=== PATIENT | male | born 1990 | race Two or more races ===

== ENCOUNTER 2024-07-30 01:25 | Emergency (ER) | payer MEDICAID, SELFPAY ==
[2024-07-30 01:27] VITALS: BMI 22.3
--- NOTE | 2024-07-30 01:35 | PC.NURSE ---
[facility] PT LEFT STORMING OUT YELLING AT STAFF. STATING EVERYONE HAS BEEN DISRESPECTFUL
== END 2024-07-30 01:37 | disposition left against medical advice (07) ==
LOC: SERX 01:52
PROVIDERS: Emergency Provider Emergency Medicine
DX: Z53.21 Procedure and treatment not carried out due to patient leaving prior to being seen by health care provider (principal)

== ENCOUNTER 2024-08-21 00:41 | Emergency (ER) | payer MEDICAID, SELFPAY ==
[2024-08-21 00:41] VITALS: BMI 21.8
[2024-08-21 01:13] VITALS: BP 112/63; PULSE 89; RESP 19; TEMP 36.8; O2SAT 99
--- NOTE | 2024-08-21 01:46 | EDNOTE_ITS ---
ED Weakness RME/HPI General Chief complaint: Dizziness Stated complaint: FEEL FAINT FOR A WEEK Time Seen by Provider: 08/21/24 01:36 Arrival date/time: 08/21/24 00:41 RME / HPI RME / HPI Narrative: This section includes all my notes and documentations, including HPI, PE, and ED course. Lionel Apodaca MD HPI: 33 y/o male with Hx of Alcoholism, Pancreatitis, and Seizures here concerned about pancreatitis. Last drink was about 5 days ago. Since, he reports generalized weakness and abdominal pain and nausea and anorexia. No seizures. No headache or dizziness. No fever. No cough or congestion. No chest pain or shortness of breath. No rectal bleeding or tarry stools. No other complaints. ROS: All negative except as documented in HPI. Physical Exam: General:? Alert and oriented.? No acute distress when remaining still. Eyes:? Conjunctivae and lids clear.? EOMI.? PERRL. ENT:? No nasal congestion.? Neck:? Supple.? Heart:? RRR.? Lungs:? No respiratory distress.? Good air movement.? No rhonchi, wheezing, rales.?? With diffuse tenderness, difficult to localizeAbdomen:? Soft .? Normal bowel sounds.? No distension.? No rebound or guarding.?? Back:? No CVA tenderness.?? Legs:? No clubbing, cyanosis, edema.? Skin:? Warm and dry.?? Neuro:? Alert and oriented X 3.? Cranial Nerves II-XII grossly intact.? No peripheral motor deficits. I ordered diagnostic tests. At 6 AM on 08/21/2024, the care of the patient was transferred to Dr De La Cruz. Lionel Apodaca MD Related Data Previous Rx's ?Medication ?Instructions ?Recorded naproxen 500 mg tablet 500 mg PO BID PRN pain #30 t abs 02/25/23 Allergies Allergy/AdvReac Type Severity Reaction Status Date / Time No Known Allergies Allergy Verified 08/21/24 00:41 Review of Systems Review of Systems Systems Reviewed: All systems reviewed, normal except as documented Past Medical History Past Medical History NEUROLOGIC: Positive Seizures CARDIAC: Positive Atrial Fibrillation GASTROINTESTINAL: Positive Pancreatitis PSYCHO/SOCIAL: Positive Depression, Anxiety and Attention Deficit Hyperactivity Disorder Social History SMOKING STATUS: Current every day smoker SUBSTANCE USE: other (Kratom) ED Exam Narrative Physical exam: Refer to HPI above Course Quality Measures none Orders Category Date Time Status Straight [In and Out Catheter] X1 Care 08/21/24 01:[address] abdomen pelvis wo con Stat Exams 08/21/24 01:49 Taken Acetaminophen Stat Lab 08/21/24 02:24 Completed Alcohol, Blood Medical Stat Lab 08/21/24 02:24 Completed Ammonia Stat Lab 08/21/24 02:24 Completed Amylase Stat Lab 08/21/24 02:24 Completed Bilirubin,Direct Stat Lab 08/21/24 02:24 Completed CBC Stat Lab 08/21/24 02:24 Completed CMP [Comprehensive Metabolic Panel] Stat Lab 08/21/24 02:24 Completed Drug Screen,Urine Stat Lab 08/21/24 01:49 Ordered Lipase Stat Lab 08/21/24 02:24 Completed Magnesium Stat Lab 08/21/24 02:24 Completed PT [Prothrombin Time with INR] Stat Lab 08/21/24 02:24 Completed PTT [Partial Thromboplastin Time] Stat Lab 08/21/24 02:24 Completed Salicylate Stat Lab 08/21/24 02:24 Completed Vital Signs Vital signs: Vital Signs Temperature 98.2 F 08/21/24 01:13 Pulse Rate 89 08/21/24 01:13 Respiratory Rate 19 08/21/24 01:13 Blood Pressure 112/63 08/21/24 01:13 Pulse Oximetry (%) 99 08/21/24 01:13 Oxygen Delivery Method Room Air 08/21/24 01:13 Weakness MDM Narrative MDM Narrative:: Scribe Attestation: IMelly, am scribing for and in the presence of Dr. Apodaca. Provider Notation: Although this document has been carefully reviewed, there may still be some phonetic and other typographical errors.? These errors are purely grammatical due to imperfections in the software program and should not be construed in any way to? compromise the substance of the patient's medical care during this visit. 33 y/o male with Hx of Alcoholism, Pancreatitis, and Seizures here concerned about pancreatitis. Last drink was about 5 days ago. Since, he reports generalized weakness and abdominal pain and nausea and anorexia. No seizures. No headache or dizziness. No fever. No cough or congestion. No chest pain or shortness of breath. No rectal bleeding or tarry stools. No other complaints. Patient data External records reviewed:: [facility] previous records (Reviewed prior ED records from 12/04/23. Patient was seen for Abrasion, left knee, initial encounter.) Clinical information provided by:: patient Social determinants that could affect healthcare access:: alcohol use Patient has the following chronic illnesses:: Seizures, Atrial Fibrillation, Pancreatitis, Depression, Anxiety and Attention Deficit Hyperactivity Disorder How is presenting disease/condition affected by chronic disease/condition?: exacerbated by Evaluation data The following diagnostics were reviewed and interpreted by me:: lab results and radiology exam(s) Lab and/or radiology exams considered but not ordered:: None Interpretation Summary: Complete diagnostic test results are pending. Medications / Prescriptions Medications or Prescriptions considered but not ordered:: None Medication administrations:: None Consultations Consultation(s) initiated? (list below): No Diagnosis Weakness Differential Diagnosis: anemia, hypoglycemia, rhabdomyolysis, sepsis, dehydration and other (liver cirrhosis, GERD, PUD, gastritis, pancreatitis, alcohol withdrawal) Most likely diagnosis given after review of the tests above:: Complete diagnostic test results are pending. Admission Indicated Admission indicated?: not indicated Explain why admission is indicated or not indicated:: Complete diagnostic test results are pending. Admission Request Was there a request for admission?: No Disposition Plan Disposition Plan: other (specify) (Care of the patient was transferred to Dr De La Cruz.) Discharge Plan Prescriptions/Referrals Prescriptions/Med Rec: No Action naproxen 500 mg tablet 500 mg PO BID PRN (Reason: pain) Qty: 30 0RF Referrals: No Primary/Family,Physician [Primary Care Provider] - In 1 week Problem List Clinical Impression: Abdominal pain Patient/Caregiver Discharge Instructions Print Language: [place]
--- NOTE | 2024-08-21 01:49 | XR_ITS ---
Examination: CT abdomen and pelvis without contrast. Coronal 3-D reconstructions. Sagittal 2-D reconstructions. Date and time of exam:August 21, 2024 0332 hours Comparison October 07, 2022 INDICATIONS: Onset abdominal pain today CTDI: vol (mGy): 6 DLP: (mGycm): 352 Technique: Axial images of the abdomen have been obtained, 3 mm slice thickness Intravenous contrast material has not been administered. Low dose protocols were performed. One or more of the following dose reduction techniques were used; automated exposure control, adjustment of the mA and/or KV according to patient size, use of iterative reconstruction technique. Findings: No focal liver or splenic lesions Contracted gallbladder No pancreatic or adrenal mass 2 mm nonobstructing left renal calculus No hydronephrosis or ureteral calculi Aorta normal size Normal appendix No bowel obstruction Urinary bladder intact No prostatomegaly The osseous structures are intact IMPRESSION: 2 mm nonobstructing left renal calculus, no hydronephrosis or ureteral calculi Normal appendix
[2024-08-21 02:36] LABS: Basophils # (Auto) 0.1 Thou/mm3 (0.0-0.2); Basophils % (Auto) 1 % (0-2.5); Eosinophils # (Auto) 0.2 Thou/mm3 (0.0-0.5); Eosinophils % (Auto) 2 % (0-10); Hematocrit 39.3 % (41.0-53.0); Hemoglobin 13.7 g/dL (13.5-16.0); Immature Granulocytes % (Auto) 0 % (0-0); Immature Granulocytes Auto 0.03 Thou/mm3 (0.00-0.00); Lymphocytes # (Auto) 1.6 Thou/mm3 (1.0-4.8); Lymphocytes % (Auto) 21 % (10-50); Mean Corpuscular HGB Conc 34.9 g/dl (31.0-37.0); Mean Corpuscular Hemoglobin 32.4 pg (25.0-35.0); Mean Corpuscular Volume 93 fL (80-100); Monocytes # (Auto) 0.8 Thou/mm3 (0.0-0.8); Monocytes % (Auto) 10 % (0-12); Neutrophils % (Auto) 66 % (37-80); Nucleated Red Blood Cell % 0 /100 WBC (0); Platelet Count 283 Thou/mm3 (140-440); RDW Standard Deviation 44.7 fL (35.1-43.9); Red Blood Count 4.23 Miln/mm3 (4.50-5.90); White Blood Count 7.6 Thou/mm3 (3.8-10.6)
[2024-08-21 02:57] LABS: Ammonia 61 uMol/L (11-32)
[2024-08-21 03:00] VITALS: BP 111/69; PULSE 69; RESP 13; TEMP 36.8; O2SAT 98
--- NOTE | 2024-08-21 03:00 | PC.NURSE ---
Pt states he does not have the urge to void at this time and will try at a later time.
[2024-08-21 03:16] LABS: Acetaminophen < 2.0 mcg/mL (10.0-20.0); Alanine Aminotransferase 150 U/L (10-49); Albumin, Serum 4.8 gm/dL (3.5-5.0); Albumin/Globulin Ratio 1.6 (1.2-2.2); Alcohol, Blood Medical < 3.0 mg/dL (0-10.0); Alkaline Phosphatase 123 U/L (46-116); Amylase 223 U/L (30-118); Anion Gap 12 (7-16); Aspartate Amino Transferase 219 U/L (0-34); BUN/Creatinine Ratio 21 Ratio (12-20); Bilirubin,Direct 0.2 mg/dL (0.0-0.3); Bilirubin,Total 0.6 mg/dL (0.3-1.2); Blood Urea Nitrogen 17 mg/dL (9-23); Calcium 9.7 mg/dL (8.3-10.6); Calcium (Corrected) 9.7 mg/dL (8.5-10.1); Carbon Dioxide 26.9 mMol/L (20.0-31.0); Chloride 100 mMol/L (98-107); Creatinine (Component) 0.8 mg/dL (0.6-1.3); Estimated Creatinine Clearance 126.9 mL/min (>60); Glucose 100 mg/dL (74-106); Lipase 57 U/L (12-53); Magnesium 1.6 mg/dL (1.6-2.6); Osmolality,Calculated 279 (275-295); Potassium 3.6 mMol/L (3.4-5.1); Salicylate < 3.0 mg/dL; Sodium 139 mMol/L (136-145); Total Protein 7.8 gm/dL (5.7-8.2); eGFR > 60 See Note
[2024-08-21 03:54] LABS: Partial Thromboplastin Time 26.5 Seconds (22.0-36.0); Prothrombin Time 11.1 Seconds (9.0-12.2)
--- NOTE | 2024-08-21 04:18 | PRELIM_ITS ---
CT scan of the abdomen and pelvis without intravenous contrast (axial sections with sagittal and coronal reformats) August 21, 2024 0332 hours Clinical History: ABD PAIN Findings: The lung bases are clear. The liver, gallbladder, pancreas, spleen and adrenals are unremarkable on this noncontrast study. Nonobstructing left renal calculus is noted. No evidence of bowel obstruction. Thickening versus underdistention of the cecum and ascending colon.The appendix is within normal limits. There is no mesenteric or retroperitoneal adenopathy. The urinary bladder is unremarkable. There is no free fluid or free air. The osseous structures are unremarkable. Impression: No evidence of bowel obstruction, free air or fluid collection. Thickening versus underdistention of the cecum and ascending colon.In the appropriate clinical setting, the possibility of colitis cannot be excluded. Recommend clinical correlation Report Electronically Signed By: Isael Graves 08/21/2024 4:17:43 AM [EST]
--- NOTE | 2024-08-21 05:00 | PC.NURSE ---
Pt continues to states he has no urge to void at this time, pt denies any pain or acute distress, pt also states that the feeling he's having is like an out of body experience .
[2024-08-21 06:00] VITALS: BP 116/65; PULSE 64; RESP 14; TEMP 36.9; O2SAT 97
--- NOTE | 2024-08-21 06:25 | PD.EDADDENDU ---
Emergency Room Addendum Addendum Narrative: 0600: Care assumed by previous shift provider. Past medical, surgical, social and family history reviewed. Vitals and home medications reviewed. Results and treatment plan discussed. I will assume the care of the patient at this time and will follow the patient, pending final disposition. Patient is sleeping comfortably, no acute complaints. I reviewed his CT findings which showed no acute issues and he is appropriate for outpatient follow-up. I advised him on the negative health consequences of continued alcohol consumption.
--- NOTE | 2024-08-21 07:05 | PC.NURSE ---
RN OFFERED SOCIAL WORK SERVICES FOR PT. PT WANTED WASHING MACHINE [employer] AND P[employer]ER SERVICES. [employer] ARRIVE AT 8AM AND WILL BE CONTACTED. PT CURRENTLY WAITING IN THE LOBBY
[2024-08-21 07:10] VITALS: BP 114/77; PULSE 87; RESP 18; TEMP 36.9; O2SAT 98
== END 2024-08-21 07:10 | disposition home or self-care (01) ==
PROVIDERS: Emergency Medicine; Emergency Provider Emergency Medicine
DX: R10.9 Unspecified abdominal pain (principal); R53.1 Weakness; R11.0 Nausea; R63.0 Anorexia
CPT/HCPCS: 36415; 74176; 80053; 80307; 80320; 80329; 82140; 82150; 82248; 83690; 83735; 85025; 85610; 85730; 99284; G0480